=== PATIENT | female | born 1975 | race Two or more races ===

== ENCOUNTER 2019-01-20 14:13 | Emergency (ER) | payer OTHER ==
[~2019-01-20] VITALS: Ht 157.5 cm; Wt 61.7 kg
--- NOTE | 2019-01-20 15:19 | NUR ---
C/O RIGHT EAR PAIN RADIATING DOWN NECK FOR 4 MONTHS, BUT HAS BEEN WORSE LAST COUPLE DAYS. STATES HAS RINGING IN RIGHT EAR. CONNECTED TO MONITORING. CALL LIGHT IN REACH. DAUGHTER AT BEDSIDE. MD AT BEDSIDE. AWAITING ORDERS AT THIS TIME.
--- NOTE | 2019-01-20 15:30 | NUR ---
IV START. LABS DRAWN AND COLLECTED BY LAB.
[2019-01-20 15:41] LABS: BASOPHILS # (AUTO) 0.03 x10^3/uL (0-0.1); BASOPHILS % (AUTO) 1 % (0-1); EOSINOPHILS # (AUTO) 0.07 x10^3/uL (0-0.4); EOSINOPHILS % (AUTO) 1 % (1-7); LYMPHOCYTES # (AUTO) 1.36 x10^3/uL (1-3.4); LYMPHOCYTES % (AUTO) 22 % (22-44); MD NO; MEAN CORPUSCULAR HGB CONC 34.3 g/dL (32.4-35.8); MEAN CORPUSCULAR VOLUME 93.1 fL (80-100); MEAN PLATELET VOLUME 7.6 fL (7.4-10.4); MONOCYTES # (AUTO) 0.33 x10^3/uL (0.2-0.8); MONOCYTES % (AUTO) 5 % (2-9); NEUTROPHILS # (AUTO) 4.32 x10^3/uL (1.8-6.8); NEUTROPHILS % (AUTO) 71 % (42-75); PLATELET COUNT 264 x10^3/uL (130-400); RED BLOOD COUNT 4.67 x10^6/uL (3.82-5.3); RED CELL DISTRIBUTION WIDTH 12.6 % (9.6-15.2)
[2019-01-20 15:53] LABS: ALBUMIN 4.1 g/dL (3.4-5.0); ANION GAP 5 mmol/L (5-15); CHLORIDE 107 mmol/L (98-107); CREATININE 0.71 mg/dL (0.55-1.02)
--- NOTE | 2019-01-20 16:07 | NUR ---
PT TAKEN TO CT
[2019-01-20] MEDS ORDERED: OMNIPAQUE 350 MG/ML, 100ML BOTTLE ONE (16:18)
--- NOTE | 2019-01-20 16:33 | NUR ---
ALL RESULTS ARE BACK AT THIS TIME. CHART UP FOR RECHECK.
[2019-01-20 16:35] VITALS: BP 109/65
--- NOTE | 2019-01-20 17:30 | NUR ---
Patient/Caregiver given discharge instructions and they have confirmed that they understand the instructions. Patient ambulatory with steady gait.
== END 2019-01-20 17:32 | disposition home or self-care (01) ==
LOC: ED 16:52
DX: H65.01 Acute serous otitis media, right ear (principal); H69.91 Unspecified Eustachian tube disorder, right ear
CPT/HCPCS: 36415; 70491; 80048; 82040; 85025; 93005; 99284; Q9967